=== PATIENT | female | born 1975 | race Caucasian/White ===

== ENCOUNTER 2018-05-13 21:37 | Observation (INO) | payer BC ==
[2018-05-13] MEDS ORDERED: Sodium Chloride 0.9% 10 ML Syringe FLUSH PRN (21:58)
[2018-05-13] MEDS ORDERED: Nitroglycerin 0.4 MG Tab.SL SL ONE ×2 (21:59→22:29)
[2018-05-13 22:49] LABS: CHLORIDE,CL 101 mmol/L (98-107); SODIUM,NA 139 mmol/L (136-145)
[2018-05-14] MEDS ORDERED: Acetaminophen 325 MG Tab PO ONE (02:33)
[2018-05-14] MEDS ORDERED: Levothyroxine 150 MCG Tab PO SCH (07:00)
[2018-05-14] MEDS ORDERED: Celecoxib 100 MG Cap PO SCH (08:00)
[2018-05-14] MEDS ORDERED: Metoprolol Succinate 50 MG Tab.ER PO SCH (08:00)
[2018-05-14] MEDS ORDERED: Aspirin 81 MG Tab.EC PO SCH (08:00)
[2018-05-14 11:03] VITALS: BP 138/88
--- NOTE | 2018-05-14 12:03 | EDM.PDOC ---
ED HPI GENERAL MEDICAL PROBLEM - General Chief Complaint: Chest Pain Stated Complaint: chest pain Time Seen by Provider: 05/13/18 21:50 Source of Information: Reports: Patient, Family History Limitations: Reports: No Limitations - History of Present Illness INITIAL COMMENTS - FREE TEXT/NARRATIVE: Pt. presents to ER with complaints of intermittent chest and jaw pain. Pt. states that she has had a history of costochondritis in the past and states that this is similar, but is concerned because is radiates into her jaw. She states that it does not radiate elsewhere. No shortness of breath or nausea. Onset Date: 05/13/18 Location: Reports: Chest Chest Pain Score (Numeric/FACES): 5 Left Middle Pain Score (Numeric/FACES): 3 - Related Data Allergies Allergy/AdvReac Type Severity Reaction Status Date / Time naproxen sodium Allergy Shortness Verified 05/13/18 21:43 [From Treximet] of Breath Penicillins Allergy Rash Verified 05/13/18 21:43 sumatriptan succinate Allergy Shortness Verified 05/13/18 21:43 [From Treximet] of Breath Home Meds: Home Meds Celecoxib [CeleBREX] 200 mg PO DAILY 05/02/14 [History] Metoprolol Succinate [Toprol XL] 50 mg PO DAILY 05/02/14 [History] Amitriptyline HCl 150 mg PO BEDTIME 05/13/18 [History] Aspirin [Lo-Dose Aspirin EC] 81 mg PO DAILY 05/13/18 [History] Past Medical History HEENT History: Reports: None Cardiovascular History: Reports: Hypertension Respiratory History: Reports: None Gastrointestinal History: Reports: None Genitourinary History: Reports: None Musculoskeletal History: Reports: Amputation Neurological History: Reports: Migraines Psychiatric History: Reports: None Endocrine/Metabolic History: Reports: Other (See Below) Oncologic (Cancer) History: Reports: Thyroid Dermatologic History: Reports: None - Infectious Disease History Infectious Disease History: Reports: Chicken Pox - Past Surgical History Cardiovascular Surgical History: Reports: None GI Surgical History: Reports: Cholecystectomy Female Surgical History: Reports: Hysterectomy Musculoskeletal Surgical History: Reports: Other (See Below) Other Musculoskeletal Surgeries/Procedures:: back fusion L5 S1 Social & Family History - Family History Family Medical History: Noncontributory - Tobacco Use Smoking Status *Q: Never Smoker Second Hand Smoke Exposure: No - Caffeine Use Caffeine Use: Reports: Soda - Recreational Drug Use Recreational Drug Use: No ED ROS GENERAL - Review of Systems Review Of Systems: See Below Constitutional: Reports: No Symptoms HEENT: Reports: No Symptoms Respiratory: Reports: No Symptoms Cardiovascular: Reports: Chest Pain Endocrine: Reports: No Symptoms GI/Abdominal: Reports: No Symptoms : Reports: No Symptoms Musculoskeletal: Reports: No Symptoms Skin: Reports: No Symptoms Neurological: Reports: No Symptoms Psychiatric: Reports: No Symptoms Hematologic/Lymphatic: Reports: No Symptoms Immunologic: Reports: No Symptoms ED EXAM, GENERAL - Physical Exam Exam: See Below Exam Limited By: No Limitations General Appearance: Alert, WD/WN, No Apparent Distress Throat/Mouth: Normal Inspection, Normal Lips, Normal Teeth, Normal Gums, Normal Oropharynx, Normal Voice, No Airway Compromise Head: Atraumatic, Normocephalic Neck: Normal Inspection, Supple, Non-Tender, Full Range of Motion Respiratory/Chest: No Respiratory Distress, Lungs Clear, Normal Breath Sounds, No Accessory Muscle Use, Other (L anterior chest pain increased with movement) Cardiovascular: Normal Peripheral Pulses, Regular Rate, Rhythm, No Edema, No Gallop, No JVD, No Murmur, No Rub GI/Abdominal: Normal Bowel Sounds, Soft, Non-Tender, No Organomegaly, No Distention, No Abnormal Bruit, No Mass Back Exam: Normal Inspection, Full Range of Motion, NT Extremities: Normal Inspection, Normal Range of Motion, Non-Tender, Normal Capillary Refill, No Pedal Edema Course - Vital Signs Last Recorded V/S: Last Vital Signs Temp 36.1 C 05/14/18 10:00 Pulse 90 05/14/18 10:00 Resp 20 05/14/18 10:00 BP 138/88 05/14/18 10:00 Pulse Ox 97 05/14/18 10:00 - Orders/Labs/Meds Orders: Active Orders 24 hr Category Date Time Status Patient Status [ADT] Routine ADT 05/13/18 23:00 Active EKG Documentation Completion [RC] STAT Care 05/13/18 21:58 Active Chest 2V [CR] Stat Exams 05/13/18 21:58 Taken FREE T3 [REF] Stat Lab 05/13/18 22:13 Received THYROXINE (T4) [REF] Stat Lab 05/13/18 22:13 Received Peripheral IV Insertion Adult [OM.PC] Routine Oth 05/13/18 21:58 Ordered Labs: Laboratory Tests 05/13/18 05/13/18 05/13/18 Range/Units 22:13 22:13 22:13 WBC 8.2 (4.0-10.0) x10^3/uL RBC 4.84 (4.00-5.50) x10^6/uL Hgb 14.1 (12.0-16.0) g/dL Hct 42.1 (33.0-47.0) % MCV 87.0 (78.0-93.0) fL MCH 29.1 (26.0-32.0) pg MCHC 33.5 (32.0-36.0) g/dL RDW Coeff of Guevara 13.6 (10.0-15.0) % Plt Count 237 (130-400) x10^3/uL Neut % (Auto) 54.1 (50.0-80.0) % Lymph % (Auto) 36.9 (25.0-50.0) % [place] % (Auto) 6.3 (2.0-11.0) % Eos % (Auto) 2.3 (0.0-4.0) % Baso % (Auto) 0.4 (0.2-1.2) % PT 10.2 (9.6-11.4) SEC INR 1.0 L (2.0-3.5) D-Dimer, Quantitative < 0.19 (<=0.58) mg/LFEU Sodium 139 (136-145) mmol/L Potassium 4.0 (3.5-5.1) mmol/L Chloride 101 (98-107) mmol/L Carbon Dioxide 27 (21-32) mmol/L Anion Gap 15.0 (10-20) mmol/L BUN 10 (7-18) mg/dL Creatinine 0.9 (0.55-1.02) mg/dL Est Cr Clr Drug Dosing 86.84 mL/min Estimated GFR (MDRD) > 60 Glucose 182 H (74-106) mg/dL Calcium 9.3 (8.5-10.1) mg/dL Corrected Calcium 9.62 (8.5-10.1) mg/dL Phosphorus 4.6 (2.6-4.7) mg/dL Magnesium 1.8 (1.8-2.4) mg/dL Total Bilirubin 0.3 (0.2-1.0) mg/dL AST 45 H (15-37) U/L ALT 54 (14-59) U/L Alkaline Phosphatase 126 H (46-116) U/L POC Troponin I (0.00-0.08) ng/mL C-Reactive Protein 1.6 H (<=0.9) mg/dL NT-Pro-B Natriuret Pep < 5 (<=125) pg/mL Total Protein 8.2 (6.4-8.2) g/dL Albumin 3.6 (3.4-5.0) g/dL Globulin 4.6 Albumin/Globulin Ratio 0.78 TSH, Ultra Sensitive 35.865 H (0.358-3.74) uIU/mL 05/13/18 Range/Units 22:18 WBC (4.0-10.0) x10^3/uL RBC (4.00-5.50) x10^6/uL Hgb (12.0-16.0) g/dL Hct (33.0-47.0) % MCV (78.0-93.0) fL MCH (26.0-32.0) pg MCHC (32.0-36.0) g/dL RDW Coeff of Guevara (10.0-15.0) % Plt Count (130-400) x10^3/uL Neut % (Auto) (50.0-80.0) % Lymph % (Auto) (25.0-50.0) % [place] % (Auto) (2.0-11.0) % Eos % (Auto) (0.0-4.0) % Baso % (Auto) (0.2-1.2) % PT (9.6-11.4) SEC INR (2.0-3.5) D-Dimer, Quantitative (<=0.58) mg/LFEU Sodium (136-145) mmol/L Potassium (3.5-5.1) mmol/L Chloride (98-107) mmol/L Carbon Dioxide (21-32) mmol/L Anion Gap (10-20) mmol/L BUN (7-18) mg/dL Creatinine (0.55-1.02) mg/dL Est Cr Clr Drug Dosing mL/min Estimated GFR (MDRD) Glucose (74-106) mg/dL Calcium (8.5-10.1) mg/dL Corrected Calcium (8.5-10.1) mg/dL Phosphorus (2.6-4.7) mg/dL Magnesium (1.8-2.4) mg/dL Total Bilirubin (0.2-1.0) mg/dL AST (15-37) U/L ALT (14-59) U/L Alkaline Phosphatase (46-116) U/L POC Troponin I 0.02 (0.00-0.08) ng/mL C-Reactive Protein (<=0.9) mg/dL NT-Pro-B Natriuret Pep (<=125) pg/mL Total Protein (6.4-8.2) g/dL Albumin (3.4-5.0) g/dL Globulin Albumin/Globulin Ratio TSH, Ultra Sensitive (0.358-3.74) uIU/mL Meds: Medications Discontinued Medications Generic Name Dose Route Start Last Admin Trade Name Maximoq PRN Reason Stop Dose Admin Acetaminophen 650 mg 05/14/18 02:33 05/14/18 02:45 Tylenol PO 05/14/18 02:34 650 mg NOW ONE Administration Amitriptyline HCl 150 mg 05/14/18 20:00 Elavil PO BEDTIME GIANA Aspirin 81 mg 05/14/18 08:00 05/14/18 08:03 Halfprin PO 81 mg DAILY GIANA Administration Celecoxib 200 mg 05/14/18 08:00 05/14/18 08:03 Celebrex PO 200 mg DAILY GIANA Administration Levothyroxine Sodium 150 mcg 05/14/18 07:00 05/14/18 06:01 Levothyroxine PO 150 mcg ACBRK GIANA Administration Levothyroxine Sodium 150 mcg 05/15/18 07:00 Levothyroxine PO AC[facility]FAST [facility] Metoprolol Succinate 50 mg 05/14/18 08:00 05/14/18 08:03 Toprol Xl PO 50 mg DAILY GIANA Administration Nitroglycerin 0.4 mg 05/13/18 21:59 05/13/18 22:09 Nitrostat SL 05/13/18 22:00 0.4 mg ONETIME ONE Administration Nitroglycerin 0.4 mg 05/13/18 22:29 05/13/18 22:33 Nitrostat SL 05/13/18 22:30 0.4 mg ONETIME ONE Administration Sodium Chloride 10 ml 05/13/18 21:58 05/14/18 08:11 Saline Flush FLUSH 10 ml ASDIRECTED PRN Administration Keep Vein Open Departure - Departure Time of Disposition: 11:30 Disposition: Admitted As Inpatient 68 Clinical Impression: Chest pain - Discharge Information - Problem List & Annotations (1) Acquired hypothyroidism SNOMED Code(s): 474633167 Code(s): E03.9 - HYPOTHYROIDISM, UNSPECIFIED Status: Acute Current Visit : Yes (2) Chest pain SNOMED Code(s): 81356735 Code(s): R07.9 - CHEST PAIN, UNSPECIFIED Status: Acute Current Visit: Yes Qualifiers: Chest pain type: unspecified Qualified Code(s): R07.9 - Chest pain, unspecified - My Orders Last 24 Hours: My Active Orders 05/13/18 21:58 EKG Documentation Completion [RC] STAT Chest 2V [CR] Stat Peripheral IV Insertion Adult [OM.PC] Routine 05/13/18 22:13 FREE T3 [REF] Stat THYROXINE (T4) [REF] Stat 05/13/18 23:00 Patient Status [ADT] Routine - Assessment/Plan Last 24 Hours: My Active Orders 05/13/18 21:58 EKG Documentation Completion [RC] STAT Chest 2V [CR] Stat Peripheral IV Insertion Adult [OM.PC] Routine 05/13/18 22:13 FREE T3 [REF] Stat THYROXINE (T4) [REF] Stat 05/13/18 23:00 Patient Status [ADT] Routine
[2018-05-14] MEDS ORDERED: Amitriptyline 25 MG Tab PO SCH (20:00)
[2018-05-15] MEDS ORDERED: Levothyroxine 150 MCG Tab PO SCH (07:00)
--- NOTE | 2018-05-23 03:20 | PCM.DCSUM1 ---
Discharge Summary - Hospital Course HPI Initial Comments: Pt. had no significant chest pain overnight. Her serial troponins have been negative. She state that she does feel better and wishes to be discharged. No evidence on ST changes on her EKG. Diagnosis: Stroke: No - Discharge Data Discharge Date: 05/15/18 Discharge Disposition: Home, Self-Care 01 Condition: Good - Discharge Diagnosis/Problem(s) (1) Acquired hypothyroidism SNOMED Code(s): 621324608 ICD Code: E03.9 - HYPOTHYROIDISM, UNSPECIFIED Status: Acute (2) Chest pain SNOMED Code(s): 39999333 ICD Code: R07.9 - CHEST PAIN, UNSPECIFIED Status: Acute Qualifiers: Chest pain type: unspecified Qualified Code(s): R07.9 - Chest pain, unspecified - Discharge Plan Home Medications: Home Meds Celecoxib [CeleBREX] 200 mg PO DAILY 05/02/14 [History] Metoprolol Succinate [Toprol XL] 50 mg PO DAILY 05/02/14 [History] Amitriptyline HCl 150 mg PO BEDTIME 05/13/18 [History] Aspirin [Lo-Dose Aspirin EC] 81 mg PO DAILY 05/13/18 [History] Forms: ED Department Discharge Referrals: Selin Jacobson PA-C [Primary Care Provider] - - General Info Date of Service: 05/15/18 Functional Status: Reports: Pain Controlled - Review of Systems General: Reports: No Symptoms HEENT: Reports: No Symptoms Pulmonary: Reports: No Symptoms Cardiovascular: Reports: No Symptoms Gastrointestinal: Reports: No Symptoms Genitourinary: Reports: No Symptoms Musculoskeletal: Reports: No Symptoms Skin: Reports: No Symptoms Neurological: Reports: No Symptoms Psychiatric: Reports: No Symptoms - Patient Data Vitals - Most Recent: Last Vital Signs Temp 36.1 C 05/14/18 10:00 Pulse 90 05/14/18 10:00 Resp 20 05/14/18 10:00 BP 138/88 05/14/18 10:00 Pulse Ox 97 05/14/18 10:00 Weight - Most Recent: 131.315 kg Med Orders - Current: Current Medications Discontinued Medications Acetaminophen (Tylenol) 650 mg PO NOW ONE Stop: 05/14/18 02:34 Last Admin: 05/14/18 02:45 Dose: 650 mg Amitriptyline HCl (Elavil) 150 mg PO BEDTIME GIANA Aspirin (Halfprin) 81 mg PO DAILY [facility] Last Admin: 05/14/18 08:03 Dose: 81 mg Celecoxib (Celebrex) 200 mg PO DAILY [facility] Last Admin: 05/14/18 08:03 Dose: 200 mg Levothyroxine Sodium (Levothyroxine) 150 mcg PO ACBRK [facility] Last Admin: 05/14/18 06:01 Dose: 150 mcg Levothyroxine Sodium (Levothyroxine) 150 mcg PO ACBREAKFAST [facility] Metoprolol Succinate (Toprol Xl) 50 mg PO DAILY [facility] Last Admin: 05/14/18 08:03 Dose: 50 mg Nitroglycerin (Nitrostat) 0.4 mg SL ONETIME ONE Stop: 05/13/18 22:00 Last Admin: 05/13/18 22:09 Dose: 0.4 mg Nitroglycerin (Nitrostat) 0.4 mg SL ONETIME ONE Stop: 05/13/18 22:30 Last Admin: 05/13/18 22:33 Dose: 0.4 mg Sodium Chloride (Saline Flush) 10 ml FLUSH ASDIRECTED PRN PRN Reason: Keep Vein Open Last Admin: 05/14/18 08:11 Dose: 10 ml - Exam General: Reports: Alert, Oriented HEENT: Reports: Pupils Equal, Pupils Reactive, EOMI, Mucous Membr. Moist/[place] Neck: Reports: Supple Lungs: Reports: Clear to Auscultation, Normal Respiratory Effort Cardiovascular: Reports: Regular Rate, Regular Rhythm GI/Abdominal Exam: Normal Bowel Sounds, Soft, Non-Tender, No Organomegaly, No Distention, No Abnormal Bruit, No Mass, Pelvis Stable (Female) Exam: Deferred Rectal (Female) Exam: Deferred Back Exam: Reports: Normal Inspection, Full Range of Motion Extremities: Normal Inspection, Normal Range of Motion, Non-Tender, No Pedal Edema, Normal Capillary Refill Skin: Reports: Warm, Dry, Intact Wound/Incisions: Reports: Healing Well Neurological: Reports: No New Focal Deficit Psy/Mental Status: Reports: Alert, Normal Affect, Normal Mood EKG INTERPRETATION Rhythm: NSR [place]: Normal P-Wave: Present QRS: Normal ST-T: Normal QT: Normal
== END 2018-05-14 11:40 | disposition home or self-care (01) ==
LOC: VM.ED 21:37 → VM.MS 23:03
PROVIDERS: ADMIT Physician Assistant; ATTEND Physician Assistant
DX: R07.9 Chest pain, unspecified (principal); E03.9 Hypothyroidism, unspecified; I10 Essential (primary) hypertension; Z87.39 Personal history of other diseases of the musculoskeletal system and connective tissue; Z79.82 Long term (current) use of aspirin; Z79.899 Other long term (current) drug therapy; Z88.6 Allergy status to analgesic agent; Z88.0 Allergy status to penicillin
CPT/HCPCS: 36415; 71046; 80053; 82024; 82533; 83735; 83880; 84100; 84436; 84443; 84481; 84484; 85025; 85379; 85610; 86140; 93005; 99285; A9270-GY; G0378; J7050